=== PATIENT | female | born 1965 | race Caucasian/White ===

== ENCOUNTER 2017-01-05 01:13 | Inpatient (IN) | payer MEDICARE, OTHER ==
[~2017-01-05] VITALS: Ht 160 cm; Wt 77.7 kg
[~2017-01-05 01:13] MED LIST: LURA20TA PO
[2017-01-05 02:20] VITALS: BP 154/97; PULSE 82; RESP 17; TEMP 98.5; O2SAT 100
[2017-01-05] MEDS ORDERED: ACETAMINOPHEN 325 MG TAB PO PRN (02:45)
[2017-01-05] MEDS ORDERED: ALUMINUM/MAGNESIUM/SIMETH 30 ML CUP PO PRN (02:45)
[2017-01-05] MEDS ORDERED: MAGNESIUM HYDROXIDE SUSP 30 ML CUP PO PRN (02:45)
[2017-01-05] MEDS ORDERED: LORazepam 2 MG/ML VIAL IM PRN (02:45)
[2017-01-05] MEDS: LORazepam 1 MG TAB PO PRN ×2 (03:18→20:24)
[2017-01-05] MEDS: NICOTINE 21 MG/24 HR PATCH T-DERMAL SCH (08:12)
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
[2017-01-05] MEDS ORDERED: diphenhydrAMINE HCL 50 MG CAP PO PRN (10:45)
[2017-01-05] MEDS ORDERED: diphenhydrAMINE HCL 50 MG/ML VIAL IM PRN (10:45)
[2017-01-05] MEDS ORDERED: cloNIDine HCL 0.1 MG TAB PO PRN (11:00)
--- NOTE | 2017-01-05 11:16 | PD.CONS ---
[facility] Requested By DR NATALIYA WALL Reason for Consult MEDICAL MANAGEMENT Primary Care Physician Unknown Diagnoses: (1) Tobacco abuse (2) Hypertension (3) Homeless (4) Psychiatric diagnosis History of Present Illness PATIENT IS A 51 YEAR OLD FEMALE WITH HISTORY OF TOBACCO ABUSE, HYPERTENSION, PSYCHIATRIC DISORDERS, AND SUICIDAL IDEATION WHO PRESENTED TO [facility]. PATIENT WAS PLACED UNDER A [place] ACT AND TRANSFERRED HERE FOR PSYCHIATRIC EVALUATION WE HAVE BEEN CONSULTED FOR MEDICAL MANAGEMENT Review of Systems Constitutional: DENIES: Diaphoretic episodes, Fatigue, Fever, Weight gain, Weight loss, Chills, Dizziness, Change in appetite Endocrine: DENIES: Abnorml menstrual pattern, Heat/cold intolerance Eyes: DENIES: Blurred vision, Diplopia, Eye inflammation Ears, nose, mouth, throat: DENIES: Tinnitus, Hearing loss, Vertigo, Nasal discharge Respiratory: DENIES: Apneas, Cough, Snoring Cardiovascular: DENIES: Chest pain, Palpitations, Syncope, Dyspnea on Exertion Gastrointestinal: DENIES: Abdominal pain, Black stools, Bloody stools Genitourinary: DENIES: Abnormal vaginal bleeding, Dysmenorrhea, Dyspareunia Musculoskeletal: DENIES: Joint pain, Muscle aches, Stiffness, Joint Swelling Integumentary: DENIES: Abnormal pigmentation, Pruritus, Rash, Nail changes Hematologic/lymphatic: DENIES: Bruising, Lymphadenopathy Immunologic/allergic: DENIES: Eczema, Urticaria Neurologic: DENIES: Abnormal gait, Headache, Localized weakness Psychiatric: COMPLAINS OF: Anxiety, Mood changes, Depression, Hallucinations, Agitation, Suicidal Ideation Except as stated in HPI: all other systems reviewed are Neg Past Family Social History Allergies: Coded Allergies: No Known Allergies (Unverified Allergy, Unknown, 01/05/17) Past Medical History Hypertension Psychiatric problems Tobacco abuse Noncompliance Homeless Past Surgical History Cholecystectomy section Reported Medications Reported Meds & Active Scripts Active Reported Latuda (Lurasidone) 20 Mg Tab 20 Mg PO DAILY Active Ordered Medications Current Medications Lorazepam (Ativan) 1 mg Q6H PRN PO MODERATE TO SEVERE ANXIETY Last administered on 01/05/17t 03:18; Start 01/05/17 at 02:45 Lorazepam (Ativan Inj) 1 mg Q6H PRN IM MODERATE TO SEVERE ANXIETY; Start 01/05 at 02:45 Acetaminophen (Tylenol) 650 mg Q4H PRN PO Pain 1-5 or Temp >101F; Start at 02:45 Magnesium Hydroxide (Milk Of Magnesia Liq) 30 ml DAILY PRN PO CONSTIPATION; Start 01/05/17 at 02:45 Al Hydrox/Mg Hydrox/Simethicone (Mag-Al Plus Susp Liq) 30 ml Q6H PRN PO DYSPEPSIA; Start 01/05/17 at 02:45 Nicotine (Habitrol 21 Mg Patch.24 Hr) 1 patch DAILY T-DERMAL Last administered on 01/05/17t 08:12; Start 01/05/17 at 09:00 Miscellaneous Information 1 HS T-DERMAL ; Start 01/05/17 at 21:00 Ziprasidone (Geodon) 40 mg BIDPC PO ; Start 01/05/17 at 18:00; Status UNV Diphenhydramine HCl (Benadryl) 50 mg Q6H PRN PO EPS or INSOMNIA; Start at 10:45; Status UNV Diphenhydramine HCl (Benadryl Inj) 50 mg Q6H PRN IM EPS, unable to take PO.; Start 01/05/17 at 10:45; Status UNV Clonidine (Catapres) 0.1 mg Q4H PRN PO SBP>160, DBP>90; Start 01/05/17 at 11: 00; Status UNV Family History Possibly hypertension Social History Smokes cigars daily Denies any alcohol or illicit Physical Exam Vital Signs Vital Signs Date Time Temp Pulse Resp B/P (MAP) Pulse Ox O2 Delivery O2 Flow Rate FiO2 01/05/17 02:20 98.5 82 17 154/97 (116) 100 Physical Exam GENERAL: This is a well-nourished, well-developed patient, in no apparent distress. SKIN: No rashes, ecchymoses or lesions. Cool and dry. HEAD: Atraumatic. Normocephalic. No temporal or scalp tenderness. EYES: Pupils equal round and reactive. Extraocular motions intact. No scleral icterus. No injection or drainage. ENT: Nose without bleeding, purulent drainage or septal hematoma. Throat without erythema, tonsillar hypertrophy or exudate. Uvula midline. Airway patent. NECK: Trachea midline. No JVD or lymphadenopathy. Supple, nontender, no meningeal signs. CARDIOVASCULAR: Regular rate and rhythm without murmurs, gallops, or rubs. RESPIRATORY: Clear to auscultation. Breath sounds equal bilaterally. No wheezes , rales, or rhonchi. GASTROINTESTINAL: Abdomen soft, non-tender, nondistended. No hepato-splenomegaly , or palpable masses. No guarding. MUSCULOSKELETAL: Extremities without clubbing, cyanosis, or edema. No joint tenderness, effusion, or edema noted. No calf tenderness. Negative Homans sign bilaterally. NEUROLOGICAL: Awake and alert. Cranial nerves II through XII intact. Motor and sensory grossly within normal limits. Five out of 5 muscle strength in all muscle groups. Normal speech. Assessment and Plan Problem List: (1) Psychiatric diagnosis ICD Code: F99 - Mental disorder, not otherwise specified (2) Hypertension ICD Code: I10 - Essential (primary) hypertension (3) Tobacco abuse ICD Code: Z72.0 - Tobacco use (4) Homeless ICD Code: Z59.0 - Homelessness Assessment and Plan Possible hypertension will continue to monitor. We'll have Catapres available for elevated blood pressure. May need to be started on lisinopril since it is free at [facility] if blood pressure is an issue Tobacco abuse recommend smoking cessation and NicoDerm patch Case management with help with the homeless issue A.m. labs Will follow for any other issues Code Status Full code Discussed Condition With Patient's RN and the patient Wicho Whitman DO Jan 05, 2017 11:16
--- NOTE | 2017-01-05 17:14 | MG ---
cc: DAYNA WOO MD Lab No: Date: 01/05/2017 Age: Sex: F Race: ELECTROENCEPHALOGRAM RECORD NUMBER [id number] DATE OF 1965 HISTORY A 51-year-old with a history of hallucinations, depression, anxiety. DESCRIPTION Posterior rhythm demonstrating 8-10 Hz activity, 10-30 microvolts. Good anterior to posterior gradient. Beta frequency in the frontal channels. Slight increase in theta. Good EEG variability reactivity. Reasonable driving with photic stimulation. Single lead EKG showing sinus rhythm. INTERPRETATION Normal EEG. Clinical correlation. Dayna Woo MD MG/KK /4:16 PM /4:56 PM
[2017-01-05] MEDS ORDERED: ZIPRASIDONE HCL 40 MG CAP PO SCH (18:00)
--- NOTE | 2017-01-05 19:24 | MB ---
cc: DOMENIC FIELD M.D. DATE OF CONSULTATION 01/05/2017 DATE OF 1965, 51 years old REASON FOR CONSULTATION Olfactory hallucinations. HISTORY OF THE PRESENT ILLNESS This is a 51-year-old woman with a history of bipolar illness comes in from [facility], voluntarily presented initially to the ED there complaining of suicidal radiation, depression, anxiety, some possible auditory hallucinations, feeling threatened while she was on the street. I am asked to evaluate her for some olfactory hallucinations. She states that she was on a park bench or on a street bench and she states she started smelling what she describes as warfare, putrid smell. She had one today when they were doing the EEG, she states when they were having her hyperventilate. She also claims that she is congested. She denies any trouble with her taste. She can taste food. She states she can smell normally as well. Denies any weakness in arms or legs or balance issues. PAST MEDICAL HISTORY Is of: 1. Hypertension. 2. Some shoulder pain. 3. Heart murmur. ALLERGIES None verified. MEDICATIONS Her other medicines, she was on Latuda in the past. SOCIAL HISTORY She is homeless. She states she is college educated, has a degree in family and child Development. She is applying for disability. from her . They have two sons age 16 and 21. Says she is on probation for trespassing. PHYSICAL EXAMINATION VITAL SIGNS: On exam her vitals, her temperature is 98.5, heart rate 82, respiratory rate 17, blood pressure 154/97, sating 100% room air. NEUROLOGIC: She is awake and alert. His speech is normal. Pupils reactive. Face is symmetrical. Tongue is midline. Motor zuñiga she does not exhibit any weakness. No drift or leg lag. She has been ambulating around the unit here normally. She has not had any issues reported. LABORATORY DATA Is pending but her beta hCG less than 1. MEDICATIONS Her current medications now are: 1. Prolixin 5 mg q. 12. 2. Clonidine p.r.n. 3. Benadryl p.r.n. 4. Ativan p.r.n. IMPRESSION Olfactory hallucinations certainly would be concerning for possible epileptic activity or epilepsy. Certainly a mass lesion needs to be differentiated. She already had an EEG, the report is pending. I will go ahead and I did discuss this with her I would like to do an MRI of the brain if her workup is negative at that point in time. Continue treating her for her psychiatric illness and may very well have a component of some sinus issues. Her TSH, free T4, metabolic panel, CBC, hemoglobin A1c is pending as well. Continue current care. As stated if EEG and MRI are unremarkable, no further neurological testing is needed. MD ROSLYN Mckinley/TRA /5:07 PM /6:50 PM
[2017-01-05] MEDS: REMOVE OLD NICOTINE PATCH T-DERMAL SCH (20:27)
[2017-01-06 05:37] VITALS: BP 118/69; PULSE 101; RESP 16; TEMP 98.2; O2SAT 99
[2017-01-06 05:45] VITALS: PULSE 74; RESP 16; TEMP 98; O2SAT 98
[2017-01-06] MEDS: NICOTINE 21 MG/24 HR PATCH T-DERMAL SCH (09:00)
[2017-01-06] MEDS: REMOVE OLD NICOTINE PATCH T-DERMAL SCH (09:11)
[2017-01-06 11:10] LABS: AUTOMATED NEUTROPHIL # 5.2 TH/MM3 (1.8-7.7); BASOPHIL # 0.1 TH/MM3 (0-0.2); BASOPHIL % 0.9 % (0.0-2.0); EOSINOPHIL # 0.4 TH/MM3 (0-0.4); EOSINOPHIL % 4.7 % (0.0-4.0); HEMO FLAGS DIFF FINAL; LYMPH % 21.6 % (9.0-44.0); LYMPHOCYTE # 1.7 TH/MM3 (1.0-4.8); MEAN CELL VOLUME 79.2 FL (80.0-100.0); MEAN CORPUSCULAR HEMOGLOBIN 26.7 PG (27.0-34.0); MEAN CORPUSCULAR HGB CONC 33.7 % (32.0-36.0); MONO % 8.3 % (0.0-8.0); NEUT % 64.5 % (16.0-70.0); PLATELET COUNT 254 TH/MM3 (150-450); RED BLOOD COUNT 4.79 MIL/MM3 (4.00-5.30); RED CELL DISTRIBUTION WIDTH 17.8 % (11.6-17.2); WHITE BLOOD COUNT 8.1 TH/MM3 (4.0-11.0)
[2017-01-06 11:19] LABS: ALT (GPT) 20 U/L (10-53); ANION GAP 7 MEQ/L (5-15); AST (GOT) 9 U/L (15-37); BICARBONATE 24.9 MEQ/L (21.0-32.0); BLOOD UREA NITROGEN 11 MG/DL (7-18); CHLORIDE 106 MEQ/L (98-107); GLOMERULAR FILTRATION RATE 100 ML/MIN (>89); MAGNESIUM 1.7 MG/DL (1.5-2.5); POTASSIUM 4.5 MEQ/L (3.5-5.1); SODIUM (NA) 138 MEQ/L (136-145)
[2017-01-06 11:27] LABS: ALKALINE PHOSPHATASE 64 U/L (45-117); FREE T4 0.98 NG/DL (0.76-1.46); LDL CHOLESTEROL 109 MG/DL (0-99); TOTAL BILIRUBIN ADULT 0.3 MG/DL (0.2-1.0)
--- NOTE | 2017-01-06 11:34 | HHI.PR ---
Subjective Remarks PATIENT IS A 51 YEAR OLD FEMALE WITH HISTORY OF TOBACCO ABUSE, HYPERTENSION, PSYCHIATRIC DISORDERS, AND SUICIDAL IDEATION WHO PRESENTED TO [facility]. PATIENT WAS PLACED UNDER A TEIXEIRA ACT AND TRANSFERRED HERE FOR PSYCHIATRIC EVALUATION WE HAVE BEEN CONSULTED FOR MEDICAL MANAGEMENT 01-06 EEG IS NEGATIVE TO HAVE MRI OF HEAD NO NEW COMPLAINTS DW RN AND PATIENT Objective Vitals Vital Signs Date Time Temp Pulse Resp B/P (MAP) Pulse Ox O2 Delivery O2 Flow Rate FiO2 01/06/17 05:45 98.0 74 16 98 01/06/17 05:37 98.2 101 16 118/69 (85) 99 Result Diagram: 01/06/17 1027 01/06/17 1027 Other Results Laboratory Tests Test 01/05/17 12:35 01/06/17 10:27 Beta HCG, Qualitative LESS THAN 1 MIU/ML White Blood Count 8.1 TH/MM3 Red Blood Count 4.79 MIL/MM3 Hemoglobin 12.8 GM/DL Hematocrit 38.0 % Mean Corpuscular Volume 79.2 FL Mean Corpuscular Hemoglobin 26.7 PG Mean Corpuscular Hemoglobin Concent 33.7 % Red Cell Distribution Width 17.8 % Platelet Count 254 TH/MM3 Mean Platelet Volume 9.8 FL Neutrophils (%) (Auto) 64.5 % Lymphocytes (%) (Auto) 21.6 % Monocytes (%) (Auto) 8.3 % Eosinophils (%) (Auto) 4.7 % Basophils (%) (Auto) 0.9 % Neutrophils # (Auto) 5.2 TH/MM3 Lymphocytes # (Auto) 1.7 TH/MM3 Monocytes # (Auto) 0.7 TH/MM3 Eosinophils # (Auto) 0.4 TH/MM3 Basophils # (Auto) 0.1 TH/MM3 CBC Comment DIFF FINAL Differential Comment Blood Urea Nitrogen 11 MG/DL Creatinine 0.63 MG/DL Random Glucose 103 MG/DL Total Protein 6.3 GM/DL Albumin 2.9 GM/DL Calcium Level 8.9 MG/DL Phosphorus Level 3.6 MG/DL Magnesium Level 1.7 MG/DL Alkaline Phosphatase 64 U/L Aspartate Amino Transf (AST/SGOT) 9 U/L Alanine Aminotransferase (ALT/SGPT) 20 U/L Total Bilirubin 0.3 MG/DL Sodium Level 138 MEQ/L Potassium Level 4.5 MEQ/L Chloride Level 106 MEQ/L Carbon Dioxide Level 24.9 MEQ/L Anion Gap 7 MEQ/L Estimat Glomerular Filtration Rate 100 ML/MIN Triglycerides Level 269 MG/DL Cholesterol Level 202 MG/DL LDL Cholesterol 109 MG/DL HDL Cholesterol 39.0 MG/DL Cholesterol/HDL Ratio 5.17 RATIO Free Thyroxine 0.98 NG/DL Thyroid Stimulating Hormone 3rd Gen 1.360 uIU/ML Objective Remarks GENERAL: AWAKE ALERT ORIENTED X3 TALKATIVE AND COOPERATIVE SKIN: Warm and dry. HEAD: Atraumatic. Normocephalic. EYES: Pupils equal and round. No scleral icterus. No injection or drainage. EOMI ENT: No nasal bleeding or discharge. Mucous membranes pink and moist. TONGUE MIDLINE NECK: Trachea midline. No JVD. SUPPLE CARDIOVASCULAR: Regular rate and rhythm. RESPIRATORY: COARSE BREATH SOUNDS BL. Breath sounds equal bilaterally. GASTROINTESTINAL: Abdomen soft, non-tender, nondistended. Hepatic and splenic margins not palpable. MUSCULOSKELETAL: Extremities without clubbing, cyanosis, or edema. No obvious deformities. NEUROLOGICAL: Awake and alert. No obvious cranial nerve deficits. Motor grossly within normal limits. Five out of 5 muscle strength in the arms and legs. Normal speech. PSYCHIATRIC: INAppropriate mood and affect; insight and judgment ABnormal. Procedures EEG Medications and IVs Current Medications Lorazepam (Ativan) 1 mg Q6H PRN PO MODERATE TO SEVERE ANXIETY Last administered on 01/05/17 20:24; Start 01/05/17 at 02:45 Lorazepam (Ativan Inj) 1 mg Q6H PRN IM MODERATE TO SEVERE ANXIETY; Start 01/05 at 02:45 Acetaminophen (Tylenol) 650 mg Q4H PRN PO Pain 1-5 or Temp >101F; Start at 02:45 Magnesium Hydroxide (Milk Of Magnesia Liq) 30 ml DAILY PRN PO CONSTIPATION; Start 01/05/17 at 02:45 Al Hydrox/Mg Hydrox/Simethicone (Mag-Al Plus Susp Liq) 30 ml Q6H PRN PO DYSPEPSIA; Start 01/05/17 at 02:45 Nicotine (Habitrol 21 Mg Patch.24 Hr) 1 patch DAILY T-DERMAL Last administered on 01/05/17 08:12; Start 01/05/17 at 09:00 Miscellaneous Information 1 HS T-DERMAL ; Start 01/05/17 at 21:00 Ziprasidone (Geodon) 40 mg BIDPC PO ; Start 01/05/17 at 18:00; Stop 01/05/17 at 18:00; Status DC Diphenhydramine HCl (Benadryl) 50 mg Q6H PRN PO EPS or INSOMNIA; Start at 10:45 Diphenhydramine HCl (Benadryl Inj) 50 mg Q6H PRN IM EPS, unable to take PO.; Start 01/05/17 at 10:45 Clonidine (Catapres) 0.1 mg Q4H PRN PO SBP>160, DBP>90; Start 01/05/17 at 11: 00 Fluphenazine HCl (Prolixin) 5 mg Q12HR PO Last administered on 01/06/17t 09:00 ; Start 01/05/17 at 21:00 A/P Problem List: (1) Psychiatric diagnosis ICD Code: F99 - Mental disorder, not otherwise specified (2) Hypertension ICD Code: I10 - Essential (primary) hypertension (3) Tobacco abuse ICD Code: Z72.0 - Tobacco use (4) Homeless ICD Code: Z59.0 - Homelessness Assessment and Plan Possible hypertension will continue to monitor. We'll have Catapres available for elevated blood pressure. May need to be started on lisinopril since it is free at [facility] if blood pressure is an issue Tobacco abuse recommend smoking cessation and NicoDerm patch Case management with help with the homeless issue SEEN BY NEUROLOGY HAD EEG- NEGATIVE TO HAVE MRIS OF BRAIN DW RN AND PATIENT Wicho Whitman Jan 06, 2017 11:34
--- NOTE | 2017-01-06 12:18 | HHI.PYPN ---
Subjective Chief Complaint: Psychosis Remarks Patient seen and examined with nurse. Chart reviewed. Case discussed with nursing staff. No behavioral issues noted. On my examination today, the patient reports decrease of her auditory hallucinations. She denies any suicidal or homicidal ideation. She is somewhat more focused in conversation and does not bring up any bizarre ideation today. Denies side effects from the Prolixin. We discussed that this is available as a long-acting injectable if desired. Denies physical complaints except she does note that she had an episode of incontinence of urine yesterday evening. No reported ictal activity associated with this. Review of Systems ROS Limitations: Psychotic Except as stated in HPI: all other systems reviewed are Neg Mental Status Examination Appearance: Appropriate Consciousness: Alert Orientation: x4 Motor Activity: Normal gait Speech: Unremarkable Language: Adequate Fund of Knowledge: Adequate Attention and Concentration: Adequate Memory: Unremarkable Mood: Appropriate Affect: Appropriate Thought Process & Associations: Logical, Linear Thought Content: Appropriate Hallucination Type: Auditory (lessening) Delusion Type: None Suicidal Ideation: No Suicidal Plan: No Suicidal Intention: No Homicidal Ideation: No Homicidal Plan: No Homicidal Intention: No Insight: Fair Judgment: Adequate (fair) Results Labs Test 01/05/17 12:35 01/06/17 10:27 Beta HCG, Qualitative LESS THAN 1 MIU/ML White Blood Count 8.1 TH/MM3 Red Blood Count 4.79 MIL/MM3 Hemoglobin 12.8 GM/DL Hematocrit 38.0 % Mean Corpuscular Volume 79.2 FL Mean Corpuscular Hemoglobin 26.7 PG Mean Corpuscular Hemoglobin Concent 33.7 % Red Cell Distribution Width 17.8 % Platelet Count 254 TH/MM3 Mean Platelet Volume 9.8 FL Neutrophils (%) (Auto) 64.5 % Lymphocytes (%) (Auto) 21.6 % Monocytes (%) (Auto) 8.3 % Eosinophils (%) (Auto) 4.7 % Basophils (%) (Auto) 0.9 % Neutrophils # (Auto) 5.2 TH/MM3 Lymphocytes # (Auto) 1.7 TH/MM3 Monocytes # (Auto) 0.7 TH/MM3 Eosinophils # (Auto) 0.4 TH/MM3 Basophils # (Auto) 0.1 TH/MM3 CBC Comment DIFF FINAL Differential Comment Blood Urea Nitrogen 11 MG/DL Creatinine 0.63 MG/DL Random Glucose 103 MG/DL Total Protein 6.3 GM/DL Albumin 2.9 GM/DL Calcium Level 8.9 MG/DL Phosphorus Level 3.6 MG/DL Magnesium Level 1.7 MG/DL Alkaline Phosphatase 64 U/L Aspartate Amino Transf (AST/SGOT) 9 U/L Alanine Aminotransferase (ALT/SGPT) 20 U/L Total Bilirubin 0.3 MG/DL Sodium Level 138 MEQ/L Potassium Level 4.5 MEQ/L Chloride Level 106 MEQ/L Carbon Dioxide Level 24.9 MEQ/L Anion Gap 7 MEQ/L Estimat Glomerular Filtration Rate 100 ML/MIN Triglycerides Level 269 MG/DL Cholesterol Level 202 MG/DL LDL Cholesterol 109 MG/DL HDL Cholesterol 39.0 MG/DL Cholesterol/HDL Ratio 5.17 RATIO Free Thyroxine 0.98 NG/DL Thyroid Stimulating Hormone 3rd Gen 1.360 uIU/ML Labs reviewed. TSH within normal limits. CBC unremarkable. CMP fairly unremarkable besides low-protein and low albumin. Lipid panel reviewed. EKG read as sinus rhythm with a QTcH 433 ms. EEG read as normal. Vitals/IOs Vital Signs Date Time Temp Pulse Resp B/P (MAP) Pulse Ox O2 Delivery O2 Flow Rate FiO2 01/06/17 05:45 98.0 74 16 98 Assessment & Plan Problem List: (1) Chronic schizoaffective disorder with acute exacerbation ICD Codes: F25.8 - Other schizoaffective disorders Assessment & Plan Continue Prolixin 5 mg twice daily as ordered. Check a urinalysis. Follow-up MRI of the brain. Neurology and hospitalist input noted and appreciated. Continue to monitor on the inpatient unit; transfer to lower acuity unit when a bed is available. Continue other medications and care as ordered. Justification for Cont. Inpt. High risk for decompensation in less restrictive environment. Discharge Planning Pending psychiatric stabilization. Request HC Surrog/Guard Advoc?: No Kwan Harrell MD Jan 06, 2017 12:18
[2017-01-06] MEDS ORDERED: NICOTINE 21 MG/24 HR PATCH T-DERMAL PRN (15:30)
--- NOTE | 2017-01-06 15:42 | EKG ---
Date Performed: 01/05/2017 Time Performed: 12:44:15 PTAGE: 51 years EKG: Sinus rhythm NONSPECIFIC T-WAVE ABNORMALITY BORDERLINE ECG NO PREVIOUS TRACING DOCTOR: Patrice Ayala Interpretating Date/Time 01/06/2017 15:41:45
[2017-01-06 18:00] LABS: BACTERIA, URINE RARE /hpf; BLOOD, URINE NEG (NEG); COMMENT (UR) CULT NOT INDICATED; CULTURE IF INDICATED CULT NOT INDICATED; GLUCOSE,URINE NEG (NEG); KETONE, URINE NEG (NEG); MUCUS URINE FEW /lpf (OCC); NITRITE,URINE NEG (NEG); PH, URINE 5.5 (5.0-8.5); SQUAMOUS EPITHELIAL CELL URINE 1 /hpf (0-5); URINE COLOR LIGHT-YELLOW (YELLW/STRAW)
[2017-01-06 18:14] LABS: HEMOGLOBIN A1a 1.1 %; HEMOGLOBIN A1b 1.6 %; HEMOGLOBIN Ao 85.8 %; HEMOGLOBIN P3 3.6 %
[2017-01-06] MEDS ORDERED: GADODIAMIDE PF 287 MG/ML 5 ML VIAL (for RAD MRI) IVCONTRAST ONE (19:41)
--- NOTE | 2017-01-06 21:12 | RADRPT ---
EXAM DATE/TIME: 01/06/2017 19:28 [place] COMPARISON: No previous studies available for comparison. INDICATIONS : Mass. Olfactory hallucinations. CONTRAST: 15 cc Omniscan (gadodiamide) IV MEDICAL HISTORY : Hypertension. SURGICAL HISTORY : Cholecystectomy. section. ENCOUNTER: Initial ACUITY: 1 day PAIN SCORE: 0/10 LOCATION: Head. TECHNIQUE: Multiplanar, multisequence MRI of the brain was performed both prior to and following the administrat ion of paramagnetic contrast. FINDINGS: CEREBRUM: The ventricles are normal for age. No evidence of midline shift, mass lesion, hemorrhage or acute in farction. No extraaxial fluid collections are seen. The pituitary gland and suprasellar cistern are normal in configuration. WHITE MATTER: No significant signal abnormalities are seen in the white matter. POSTERIOR FOSSA: The cerebellum and brainstem are intact. The 4th ventricle is midline. The cerebellopontine angle is unremarkable. The cerebellar tonsils are normal in position. DIFFUSION IMAGING: No focal areas of restricted diffusion are seen. No evidence of acute infarction. EXTRACRANIAL: The visualized portions of the orbits are unremarkable. There is minimal posterior right ethmoid sinu s disease. There is minimal mucosal thickening at the maxillary sinuses. POST-CONTRAST: No abnormal areas of parenchymal or dural enhancement. No evidence of blood-brain barrier breakdown. CONCLUSION: 1. No intracranial abnormality is seen. 2. Minimal sinus disease. Jacob Dyer MD on January 06, 2017 at 21:07 Board Certified Radiologist. This report was verified electronically.
[2017-01-06] MEDS: LORazepam 1 MG TAB PO PRN (21:35)
[2017-01-07 05:51] VITALS: BP 125/70; PULSE 66; RESP 17; TEMP 97.7; O2SAT 98
--- NOTE | 2017-01-07 08:35 | HHI.PYPN ---
Subjective Chief Complaint: Psychosis Remarks Patient seen and examined with nurse. Chart reviewed. Case discussed in treatment team. Nursing staff relates that the patient refused the Prolixin overnight. On my examination today, the patient tells me that she didn't like how the Prolixin made her feel. She does not wish to continue with this medication. We discussed pharmacotherapeutic options moving forward and settle on returning to her original Latuda. She denies SI or HI. Denies AVH. No physical complaints presently. Review of Systems Except as stated in HPI: all other systems reviewed are Neg Mental Status Examination Appearance: Appropriate Consciousness: Alert Orientation: x4 Motor Activity: Other (no motor abnormalities noted) Speech: Unremarkable Language: Adequate Fund of Knowledge: Adequate Attention and Concentration: Adequate Memory: Unremarkable Mood: Appropriate Affect: Appropriate Thought Process & Associations: Logical, Goal directed, Linear Thought Content: Appropriate Hallucination Type: None Delusion Type: None Suicidal Ideation: No Suicidal Plan: No Suicidal Intention: No Homicidal Ideation: No Homicidal Plan: No Homicidal Intention: No Insight: Fair Judgment: Adequate (fair) Results Labs Test 01/06/17 10:27 01/06/17 17:45 White Blood Count 8.1 TH/MM3 Red Blood Count 4.79 MIL/MM3 Hemoglobin 12.8 GM/DL Hematocrit 38.0 % Mean Corpuscular Volume 79.2 FL Mean Corpuscular Hemoglobin 26.7 PG Mean Corpuscular Hemoglobin Concent 33.7 % Red Cell Distribution Width 17.8 % Platelet Count 254 TH/MM3 Mean Platelet Volume 9.8 FL Neutrophils (%) (Auto) 64.5 % Lymphocytes (%) (Auto) 21.6 % Monocytes (%) (Auto) 8.3 % Eosinophils (%) (Auto) 4.7 % Basophils (%) (Auto) 0.9 % Neutrophils # (Auto) 5.2 TH/MM3 Lymphocytes # (Auto) 1.7 TH/MM3 Monocytes # (Auto) 0.7 TH/MM3 Eosinophils # (Auto) 0.4 TH/MM3 Basophils # (Auto) 0.1 TH/MM3 CBC Comment DIFF FINAL Differential Comment Blood Urea Nitrogen 11 MG/DL Creatinine 0.63 MG/DL Random Glucose 103 MG/DL Total Protein 6.3 GM/DL Albumin 2.9 GM/DL Calcium Level 8.9 MG/DL Phosphorus Level 3.6 MG/DL Magnesium Level 1.7 MG/DL Alkaline Phosphatase 64 U/L Aspartate Amino Transf (AST/SGOT) 9 U/L Alanine Aminotransferase (ALT/SGPT) 20 U/L Total Bilirubin 0.3 MG/DL Sodium Level 138 MEQ/L Potassium Level 4.5 MEQ/L Chloride Level 106 MEQ/L Carbon Dioxide Level 24.9 MEQ/L Anion Gap 7 MEQ/L Estimat Glomerular Filtration Rate 100 ML/MIN Hemoglobin A1c 5.3 % Triglycerides Level 269 MG/DL Cholesterol Level 202 MG/DL LDL Cholesterol 109 MG/DL HDL Cholesterol 39.0 MG/DL Cholesterol/HDL Ratio 5.17 RATIO Free Thyroxine 0.98 NG/DL Thyroid Stimulating Hormone 3rd Gen 1.360 uIU/ML Urine Color LIGHT-YELLOW Urine Turbidity CLEAR Urine pH 5.5 Urine Specific [place] 1.002 Urine Protein NEG mg/dL Urine Glucose (UA) NEG mg/dL Urine Ketones NEG mg/dL Urine Occult Blood NEG Urine Nitrite NEG Urine Bilirubin NEG Urine Urobilinogen LESS THAN 2.0 MG/DL Urine Leukocyte Esterase NEG Urine RBC 1 /hpf Urine WBC 1 /hpf Urine Squamous Epithelial Cells 1 /hpf Urine Bacteria RARE /hpf Urine Mucus FEW /lpf Microscopic Urinalysis Comment CULT NOT INDICATED Labs reviewed. Last Impressions Brain MRI 01/06/17 0000 Signed Impressions: Service Date/Time: December 19:28 - CONCLUSION: 1. No intracranial abnormality is seen. 2. Minimal sinus disease. Jacob Dyer MD Imaging results reviewed. Vitals/IOs Vital Signs Date Time Temp Pulse Resp B/P (MAP) Pulse Ox O2 Delivery O2 Flow Rate FiO2 01/07/17 05:51 97.7 66 17 125/70 (88) 98 Assessment & Plan Problem List: (1) Chronic schizoaffective disorder with acute exacerbation ICD Codes: F25.8 - Other schizoaffective disorders Assessment & Plan Discontinue Prolixin and resume Latuda at a dose of 40 mg with dinner with plans to titrate over the weekend to previous reported dose of 60 mg with dinner. Continue to monitor on the inpatient unit. Continue other medications and care as ordered. Justification for Cont. Inpt. Med changes. Risk for decompensation pending med changes. Discharge Planning Anticipate discharge beginning of next week. Case discussed with counselor. Request HC Surrog/Guard Advoc?: No Kwan Harrell MD Jan 07, 2017 08:35
--- NOTE | 2017-01-07 09:28 | PD.TTN ---
Patient Problems 1. Discharge planning 2. Medication compliance 3. Knowledge deficit 4. Lack of coping skills Progress Toward Goals Provider Present: Dr. Florecita Harrell Provider Input: Dr. Harrell's met to discuss patient's treatment plan, discharge and medication. Patient was transferred from another hospital. Patient was offer her medication, will start treatment. Neurologist consulted. Patient is homeless Nurse(s) Input: Patient's nurse reports patient is seclusive, depressed, medication compliant, denies suicidal and homicidal ideation. Psychiatric Counselors Present: BALTAZAR Davalos Psych Therapist Input: Patient seen in her room. Patient presents pleasant, cooperative, affect appropriate. Patient denies suicidal and homicidal ideation. Patient did not present internally stimulated or with any delusional content. Patient was given [facility] number to call to speak to [place]. Facility does have a female bed available. Group Spec/RT/OT/GIFFORD Present: ИРИНА Lan Group Spec/RT/OT/GIFFORD Input: Patient attends no groups Stacey Goodwin Jan 07, 2017 09:27
[2017-01-07 16:57] VITALS: BP 136/80; PULSE 80; RESP 17; TEMP 97.5; O2SAT 99
[2017-01-07] MEDS: LURASIDONE 40 MG TAB PO SCH (17:24)
[2017-01-07] MEDS ORDERED: LURASIDONE 40 MG TAB PO SCH (18:00)
[2017-01-07] MEDS: REMOVE OLD NICOTINE PATCH T-DERMAL SCH (21:00)
[2017-01-08 06:04] VITALS: BP 143/93; PULSE 81; RESP 17; TEMP 98.7; O2SAT 100
--- NOTE | 2017-01-08 16:17 | HHI.PYPN ---
Subjective Chief Complaint: Psychosis Remarks Pt seen and discussed with staff. She denies AVH or olfactory hallucinations today. No bizarre behavior or agitation. Mood euthymic. She is compliant with medications. No SI/HI. Mental Status Examination Appearance: Appropriate Consciousness: Alert Orientation: x4 Motor Activity: Other (no motor abnormalities noted) Speech: Unremarkable Language: Adequate Fund of Knowledge: Adequate Attention and Concentration: Adequate Memory: Unremarkable Mood: Appropriate Affect: Appropriate Thought Process & Associations: Logical, Goal directed, Linear Thought Content: Appropriate Hallucination Type: None Delusion Type: None Suicidal Ideation: No Suicidal Plan: No Suicidal Intention: No Homicidal Ideation: No Homicidal Plan: No Homicidal Intention: No Insight: Fair Judgment: Adequate (fair) Results Vitals/IOs Vital Signs Date Time Temp Pulse Resp B/P (MAP) Pulse Ox O2 Delivery O2 Flow Rate FiO2 01/08/17 06:04 98.7 81 17 143/93 (110) 100 Assessment & Plan Problem List: (1) Chronic schizoaffective disorder with acute exacerbation ICD Codes: F25.8 - Other schizoaffective disorders Assessment & Plan Pt improving. Continue current tx plan. Estimated LOS: days Justification for Cont. Inpt. risk of decompensation Request HC Surrog/Guard Advoc?: No January Butts MD Jan 08, 2017 16:17
[2017-01-08] MEDS: LURASIDONE 40 MG TAB PO SCH (17:25)
[2017-01-08 18:00] VITALS: BP 191/82; PULSE 69; RESP 18; TEMP 98.7; O2SAT 99
[2017-01-08] MEDS: REMOVE OLD NICOTINE PATCH T-DERMAL SCH (21:00)
[2017-01-09 06:00] VITALS: BP 131/67; PULSE 64; RESP 17; TEMP 98.5; O2SAT 100
[2017-01-09] MEDS ORDERED: CLON.1 PO (08:59)
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
[2017-01-09 18:00] VITALS: BP 124/77; PULSE 68; RESP 16; TEMP 97.6; O2SAT 100
[2017-01-09] MEDS: LURASIDONE 40 MG TAB PO SCH (18:00)
[2017-01-09] MEDS: REMOVE OLD NICOTINE PATCH T-DERMAL SCH (21:00)
[2017-01-10 06:16] VITALS: BP 152/83; PULSE 68; RESP 16; TEMP 98.2; O2SAT 99
[2017-01-10] MEDS ORDERED: LURA1TAB2 PO (11:28)
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
--- NOTE | 2017-01-10 11:42 | HHI.PYPN ---
Subjective Chief Complaint: Psychosis Remarks Patient seen and examined with nurse. Chart reviewed. Case discussed with nursing staff. No behavioral issues overnight. Case discussed with counselor who reports that the patient has been accepted to [facility] facility tomorrow, Tuesday. On my examination today, the patient is in good spirits. She denies any suicidal or homicidal ideation. Contracts for safety. She denies any audiovisual hallucinations. I can elicit no delusional material. Denies side effects from medications. Feels that Latuda is working well for her. No physical complaints. Review of Systems Except as stated in HPI: all other systems reviewed are Neg Mental Status Examination Appearance: Appropriate Consciousness: Alert Orientation: x4 Motor Activity: Other (no hand tremor, no cogwheeling, no other motor abnormalities noted.) Speech: Unremarkable Language: Adequate Fund of Knowledge: Adequate Attention and Concentration: Adequate Memory: Unremarkable Mood: Appropriate Affect: Appropriate, Euthymic Thought Process & Associations: Logical, Goal directed, Linear Thought Content: Appropriate Hallucination Type: None Delusion Type: None Suicidal Ideation: No Suicidal Plan: No Suicidal Intention: No Homicidal Ideation: No Homicidal Plan: No Homicidal Intention: No Insight: Fair Judgment: Adequate (fair) Results Labs Labs reviewed. No new labs. Vitals/IOs Vital Signs Date Time Temp Pulse Resp B/P (MAP) Pulse Ox O2 Delivery O2 Flow Rate FiO2 01/10/17 06:16 98.2 68 16 152/83 (106) 99 Assessment & Plan Problem List: (1) Chronic schizoaffective disorder with acute exacerbation ICD Codes: F25.8 - Other schizoaffective disorders Assessment & Plan Continue Latuda as ordered. Continue to monitor on the inpatient unit. Continue other medications and care as ordered. Justification for Cont. Inpt. Risk for decompensation in less restrictive environment Discharge Planning Anticipate discharge tomorrow, Tuesday to [facility]. Request HC Surrog/Guard Advoc?: No Kwan Harrell MD Jan 10, 2017 11:42
[2017-01-10] MEDS: LURASIDONE 40 MG TAB PO SCH (17:05)
[2017-01-10 18:00] VITALS: BP 119/69; PULSE 62; RESP 16; TEMP 98.3; O2SAT 100
[2017-01-10] MEDS: REMOVE OLD NICOTINE PATCH T-DERMAL SCH (21:00)
[2017-01-11 06:26] VITALS: BP 128/53; PULSE 68; RESP 17; TEMP 98.1; O2SAT 98
--- NOTE | 2017-01-11 10:24 | PD.TTN ---
Patient Problems 1. Discharge planning 2. Medication compliance 3. Knowledge deficit 4. Lack of coping skills Progress Toward Goals Provider Present: Dr. Florecita Harrell Provider Input: Dr. Harrell's met to discuss patient's treatment plan, discharge and medication. Patient was transferred from another hospital. Patient was offer her medication, will start treatment. Neurologist consulted. Patient is homeless 01/11/17 Patient will be discharged today and will be residing at [facility] with appropriate follow up care at [facility]. Nurse(s) Input: Patient's nurse reports patient is seclusive, depressed, medication compliant, denies suicidal and homicidal ideation. 01/11/17 [place] has had no behavioral issues on the unit. Patient has been compliant with medications and currently denies suicidal and homicidial ideations. Psychiatric Counselors Present: BALTAZAR Davalos Talia Moussly, [facility] Psych Therapist Input: Patient seen in her room. Patient presents pleasant, cooperative, affect appropriate. Patient denies suicidal and homicidal ideation. Patient did not present internally stimulated or with any delusional content. Patient was given [facility] number to call to speak to [place]. Facility does have a female bed available. 01/11/17 Patient will be discharge and be transferred by hospital transport to [facility] where patient will be residing and having appropriate follow up care. Group Spec/RT/OT/GIFFORD Present: ИРИНА Lan Group Spec/RT/OT/GIFFORD Input: Patient attends no Valentina Dawson Jan 11, 2017 10:24
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
== END 2017-01-11 12:45 | disposition home or self-care (01) | DRG 885 ==
LOC: H270 02:20 → H260 01-06 17:32
PROVIDERS: ADMIT Psychiatry & Neurology Psychiatry; ATTEND Psychiatry & Neurology Psychiatry
DX: F25.8 Other schizoaffective disorders (principal); R45.851 Suicidal ideations; Z91.19 Patient's noncompliance with other medical treatment and regimen; I10 Essential (primary) hypertension; Z59.0 Homelessness; F31.9 Bipolar disorder, unspecified; F41.9 Anxiety disorder, unspecified; M25.511 Pain in right shoulder; Z91.5 Personal history of self-harm; Z65.3 Problems related to other legal circumstances; F17.290 Nicotine dependence, other tobacco product, uncomplicated; R32 Unspecified urinary incontinence
CPT/HCPCS: 70553; 80053; 80061; 81001; 83036; 83735; 84100; 84439; 84443; 84703; 85025; 93005; 95819; A9579; Q0163

== ENCOUNTER 2017-07-29 04:15 | Inpatient (IN) | payer MEDICARE ==
[~2017-07-29] VITALS: Ht 160 cm; Wt 78.8 kg
[2017-07-29 05:43] VITALS: RESP 18; TEMP 98.3; O2SAT 97
[2017-07-29] MEDS ORDERED: LORazepam 1 MG TAB PO PRN ×2 (06:00→16:30)
[2017-07-29] MEDS ORDERED: ALUMINUM/MAGNESIUM/SIMETH 30 ML CUP PO PRN (06:00)
[2017-07-29] MEDS ORDERED: ACETAMINOPHEN 325 MG TAB PO PRN (06:00)
[2017-07-29] MEDS ORDERED: LORazepam 2 MG/ML VIAL IM PRN (06:00)
[2017-07-29] MEDS ORDERED: diphenhydrAMINE HCL 50 MG CAP - HS PRN PO (06:00)
[2017-07-29] MEDS ORDERED: diphenhydrAMINE HCL 50 MG/ML VIAL - HS PRN IM (06:00)
[2017-07-29] MEDS ORDERED: MAGNESIUM HYDROXIDE SUSP 30 ML CUP PO PRN (06:00)
[2017-07-29] MEDS: NICOTINE 21 MG/24 HR PATCH T-DERMAL SCH (09:00)
[2017-07-29] MEDS: REMOVE OLD NICOTINE PATCH T-DERMAL SCH (12:54)
[2017-07-29] MEDS ORDERED: LORazepam 2 MG TAB PO PRN (16:30)
[2017-07-29] MEDS ORDERED: FLUMAZENIL 0.5 MG/5 ML VIAL IV PUSH PRN (16:30)
[2017-07-29] MEDS ORDERED: LORazepam 2 MG/ML VIAL IV PUSH PRN ×4 (16:30)
[2017-07-29] MEDS: LURASIDONE 40 MG TAB PO SCH ×2 (17:31→17:57)
[2017-07-29 18:28] VITALS: BP 160/88; PULSE 82; RESP 18; TEMP 98.4; O2SAT 100
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
[2017-07-30] MEDS: NICOTINE 21 MG/24 HR PATCH T-DERMAL SCH (08:39)
--- NOTE | 2017-07-30 17:13 | HHI.PYPN ---
Subjective Remarks Reviewed electronic medical record and discussed case with staff. Follow-up was conducted in the hallway. Blind and irritable. She states that she feels "pretty good". When asked how she slept she says okay but goes on to relate a "weird dream" at which point she began laughing inappropriately. She reports that her appetite is been good. Did consent to start her on Seroquel, as she was asking about the vergara difference and reported that the Latuda was too expensive for her. I did note some manipulative behaviors and believe there may be some cluster B characteristics present. Mental Status Examination Appearance: Disheveled Consciousness: Alert Orientation: Person, Place Speech: Unremarkable Language: Adequate Fund of Knowledge: Inadequate Attention and Concentration: Adequate Memory: Unremarkable Mood: Irritable Affect: Irritable Thought Process & Associations: Other ([place], noted to be responding to internal stimuli) Thought Content: Hallucinations Hallucination Type: Auditory Delusion Type: None Suicidal Ideation: Yes Suicidal Plan: No Suicidal Intention: No Homicidal Ideation: No Homicidal Plan: No Homicidal Intention: No Insight: Poor Judgment: Poor Results Vitals/IOs Vital Signs Date Time Temp Pulse Resp B/P (MAP) Pulse Ox O2 Delivery O2 Flow Rate FiO2 07/29/17 18:28 98.4 82 18 160/88 (112) 100 Assessment & Plan Problem List: (1) Chronic schizoaffective disorder with acute exacerbation ICD Codes: F25.8 - Other schizoaffective disorders Assessment & Plan Estimated LOS: Patient is just being started on a medication. With current treatment plan and monitor for decrease in symptoms. Days Justification for Cont. Inpt. Moving this patient to a less restrictive environment may result in decompensation. Lakisha Muhammad Jul 30, 2017 17:13
[2017-07-30] MEDS: LURASIDONE 40 MG TAB PO SCH (18:00)
[2017-07-30] MEDS: REMOVE OLD NICOTINE PATCH T-DERMAL SCH (20:46)
[2017-07-31 06:26] VITALS: BP 158/90; PULSE 77; RESP 19; TEMP 97.8; O2SAT 99
[2017-07-31] MEDS: NICOTINE 21 MG/24 HR PATCH T-DERMAL SCH (08:59)
--- NOTE | 2017-07-31 12:11 | HHI.PYPN ---
Subjective Remarks Reviewed electronic medical record discussed case with staff. Follow-up was conducted in the day room. Patient reports that she slept well and her appetite is been good. She is again requesting a change of medication from Latuda to Seroquel due to cost. Consulted with Dr. Palomo who advised to leave her on the Latuda for now. He will be following up with her tomorrow. Patient' s mood is irritable and her affect is blunt bordering on irritable. Mental Status Examination Appearance: Disheveled Consciousness: Alert Orientation: Person, Place Speech: Unremarkable Language: Adequate Fund of Knowledge: Inadequate Attention and Concentration: Adequate Memory: Unremarkable Mood: Irritable Affect: Irritable Thought Process & Associations: Other ([place], noted to be responding to internal stimuli) Thought Content: Hallucinations Hallucination Type: Auditory Delusion Type: None Suicidal Ideation: Yes Suicidal Plan: No Suicidal Intention: No Homicidal Ideation: No Homicidal Plan: No Homicidal Intention: No Insight: Poor Judgment: Poor Results Vitals/IOs Vital Signs Date Time Temp Pulse Resp B/P (MAP) Pulse Ox O2 Delivery O2 Flow Rate FiO2 07/31/17 06:26 97.8 77 19 158/90 (112) 99 Intake and Output 07/31/17 07/31/17 08/01/17 08:00 16:00 00:00 Intake Total 120 ml Balance 120 ml Assessment & Plan Problem List: (1) Chronic schizoaffective disorder with acute exacerbation ICD Codes: F25.8 - Other schizoaffective disorders Assessment & Plan Estimated LOS: Continue with current treatment. Patient will be reevaluated by her attending psychiatrist tomorrow. Days Justification for Cont. Inpt. Moving this patient to a less restrictive environment could result in decompensation. Lakisha Muhammad Jul 31, 2017 12:11
[2017-07-31] MEDS: LURASIDONE 40 MG TAB PO SCH (17:32)
[2017-07-31 18:16] VITALS: BP 182/98; PULSE 76; RESP 16; TEMP 98; O2SAT 99
[2017-07-31] MEDS: REMOVE OLD NICOTINE PATCH T-DERMAL SCH (20:55)
[2017-08-01 05:42] VITALS: BP 147/93; PULSE 67; RESP 18; TEMP 97.3; O2SAT 100
--- NOTE | 2017-08-01 07:00 | EKG ---
Date Performed: 07/29/2017 Time Performed: 11:12:54 PTAGE: 51 years EKG: Sinus rhythm NONSPECIFIC T-WAVE ABNORMALITY BORDERLINE ECG Since the PREVIOUS TRACING , no significant change noted PREVIOUS TRACIN01/05/2017 12.44 DOCTOR: Kwan Chester Interpretating Date/Time 08/01/2017 07:44:41
[2017-08-01] MEDS: NICOTINE 21 MG/24 HR PATCH T-DERMAL SCH (09:00)
--- NOTE | 2017-08-01 09:21 | PD.CONS ---
HPI Service [facility] Hospitalists Consult Requested By Psychiatric services Reason for Consult Assist with hypertensive management Primary Care Physician Unknown Diagnoses: History of Present Illness This is a 51-year-old female with a past medical history significant for hypertension, dyslipidemia and schizoaffective disorder who was transferred from [facility] to [facility] psychiatric unit under [place] act due to suicidal ideations with a plan to overdose on pills endorsing auditory and visual hallucinations. Hospitalist services have been consulted to assist with hypertensive management. Patient seen and examined. Patient appears irritable and is poorly communicative during the interview. She denies any complaints. When discussing her high blood pressure and starting medication patient states she does not want any blood pressure medications. She is minimally verbal and will give appropriate laura, short responses. Discussed with nursing staff, no acute issues noted. Patient denies any dizziness, headache, weakness, chest pain, shortness of breath, nausea, vomiting, abdominal pain, urinary difficulties, diarrhea or constipation. Review of medical records from [facility] shows patient's UA was negative. Urine drug screen was negative as well. Review of Systems Except as stated in HPI: all other systems reviewed are Neg Past Family Social History Allergies: Coded Allergies: olanzapine (Unverified Adverse Reaction, Unknown, Weight Gain, 06/23/17) risperidone (Unverified Adverse Reaction, Unknown, Shortness of Breath, ) ziprasidone (Unverified Adverse Reaction, Unknown, Chest Pain, 06/23/17) Past Medical History Schizoaffective disorder Anxiety/depression Hypertension HLD Past Surgical History Cholecystectomy Reported Medications No reported home medications Active Ordered Medications Current Medications Medications (Trade) Dose Ordered Sig/Abigail Route Start Time Stop Time Status Last Admin (Ativan) 1 mg Q6H PRN PO 07/29/17 06:00 07/30/17 08:37 (Ativan Inj) 1 mg Q6H PRN IM 07/29/17 06:00 (Benadryl) 50 mg HS PRN PO 07/29/17 06:00 (Benadryl Inj) 50 mg HS PRN IM 07/29/17 06:00 (Tylenol) 650 mg Q4H PRN PO 07/29/17 06:00 (Milk Of Magnesia Liq) 30 ml DAILY PRN PO 07/29/17 06:00 (Mag-Al Plus Susp Liq) 30 ml Q6H PRN PO 07/29/17 06:00 (Habitrol 21 Mg Patch.24 Hr) 1 patch DAILY T-DERMAL 07/29/17 09:00 07/31/17 08:59 Miscellaneous Information 1 HS T-DERMAL 07/29/17 21:00 07/31/17 20:55 (Latuda) 40 mg WITH DINNER PO 07/29/17 18:00 07/31/17 17:32 (Romazicon Inj) 0.2 mg Q1M PRN IV PUSH 07/29/17 16:30 (Ativan) 1 mg Q4H PRN PO 07/29/17 16:30 (Ativan Inj) 1 mg Q4H PRN IV PUSH 07/29/17 16:30 (Ativan) 2 mg Q2H PRN PO 07/29/17 16:30 (Ativan Inj) 2 mg Q2H PRN IV PUSH 07/29/17 16:30 (Ativan Inj) 2 mg Q1H PRN IV PUSH 07/29/17 16:30 (Ativan Inj) 2 mg Q15M PRN IV PUSH 07/29/17 16:30 (Norvasc) 5 mg DAILY PO 08/01/17 09:00 Family History Hypertension Social History Patient reports tobacco use but will not give specifics. She denies any alcohol use or illicit drug use. Physical Exam Vital Signs Vital Signs Date Time Temp Pulse Resp B/P (MAP) Pulse Ox O2 Delivery O2 Flow Rate FiO2 08/01/17 05:42 97.3 67 18 147/93 (111) 100 07/31/17 18:16 98.0 76 16 182/98 (126) 99 Physical Exam GENERAL: This is a well-nourished, well-developed middle-aged female patient, in no apparent distress. Awake and alert. Irritable. Somewhat dismissive with this interviewer. SKIN: No rashes, ecchymoses or lesions. Warm and dry. HEAD: Atraumatic. Normocephalic. No temporal or scalp tenderness. EYES: Pupils equal round and reactive. Extraocular motions intact. No scleral icterus. No injection or drainage. ENT: Nose without bleeding, purulent drainage or septal hematoma. Throat without erythema, tonsillar hypertrophy or exudate. Uvula midline. Airway patent. NECK: Trachea midline. No lymphadenopathy. Supple, nontender, no meningeal signs. CARDIOVASCULAR: Regular rate and rhythm without murmurs, gallops, or rubs. RESPIRATORY: Nonlabored. Clear to auscultation. Breath sounds equal bilaterally. No wheezes, rales, or rhonchi. GASTROINTESTINAL: Abdomen soft, non-tender, nondistended. No hepato-splenomegaly , or palpable masses. No guarding. MUSCULOSKELETAL: Extremities without clubbing, cyanosis, or edema. No joint tenderness, effusion, or edema noted. No calf tenderness. NEUROLOGICAL: Awake and alert. Cranial nerves II through XII grossly intact. Motor and sensory grossly within normal limits. Nonfocal peer normal speech. PSYCHIATRIC: Irritable mood. Poor insight and judgment. Assessment and Plan Assessment and Plan 51-year-old female with a past medical history significant for hypertension, dyslipidemia and schizoaffective disorder who was transferred from [facility] to [place] inpatient psychiatric unit under [place] act due to suicidal ideations with a plan to overdose on pills endorsing auditory and visual hallucinations. Hospitalist services have been consulted to assist with hypertensive management. Schizoaffective disorder with acute exacerbation Auditory and visual hallucinations Depression/anxiety Suicidal ideation with plan -Management per psychiatric services Hypertension -Start patient on Norvasc 5 mg daily patient states she will refuse medication. -Clonidine as needed with parameters -Continue to monitor BP trend Dyslipidemia -We will order fasting lipid profile DVT prophylaxis -Patient is ambulatory Discussed Condition With patient, nursing staff, Leah Riley Aug 01, 2017 09:21
[2017-08-01] MEDS ORDERED: cloNIDine HCL 0.1 MG TAB PO PRN (09:30)
[2017-08-01] MEDS: amLODIPine BESYLATE 5 MG TAB PO SCH (10:33)
[2017-08-01] MEDS ORDERED: PILL SPLITTER OTHER PRN (13:00)
--- NOTE | 2017-08-01 15:39 | PD.TTN ---
Patient Problems 1. Discharge planning 2. Medication compliance 3. Knowledge deficit 4. Lack of coping skills Progress Toward Goals Provider Present: Dr. Laci Palomo Provider Input: 08/01 offering a med adjustment today Nurse(s) Input: 08/01 Jade is suicidal reported to share she wants to overdose - angry and slamming doors, rude and intrusive, some ambivalent information Psychiatric Counselors Present: Aurea Levy LCSW Psych Therapist Input: 08/01 pt is appearing to request discharge and may lack insight to her situation later today patient shares she needs a psych eval for her probation, she insists she has [facility] apt but is not in system with them, she appears confused or ambivalent about her situation/history Aurea Levy LCSW Aug 01, 2017 15:39
--- NOTE | 2017-08-01 16:32 | HHI.PYPN ---
Subjective Remarks Patient seen for follow, chart reviewed. Discussion nursing staff reported the patient to be somewhat demanding and irritable less evening as well as with staff this morning. Patient was found heavily on the unit continues to be noted to be very sarcastic and irritable during interview but tolerating questioning much better today. Patient states that she had a bowel movement yesterday, reports sleeping well, and that her mood "could be better" reports that her energy is "fine" and asking about licensed clinical social worker in regards to social issues which she did not elaborate on. Patient states she spoke with her son which she did not elaborate on either. Patient states that she had been homeless prior to her admission staying at a "a dumpster" and noted to becoming upset and ended interview to go finish her lunch. Review of Systems Except as stated in HPI: all other systems reviewed are Neg Mental Status Examination Appearance: Disheveled Consciousness: Alert Orientation: Person, Place Speech: Unremarkable Language: Adequate Fund of Knowledge: Inadequate Attention and Concentration: Adequate Memory: Unremarkable Mood: Irritable Affect: Irritable Thought Process & Associations: Other ([place], noted to be responding to internal stimuli) Thought Content: Hallucinations Hallucination Type: Auditory Delusion Type: None Suicidal Ideation: Yes Suicidal Plan: No Suicidal Intention: No Homicidal Ideation: No Homicidal Plan: No Homicidal Intention: No Insight: Poor Judgment: Poor Results Vitals/IOs Vital Signs Date Time Temp Pulse Resp B/P (MAP) Pulse Ox O2 Delivery O2 Flow Rate FiO2 08/01/17 05:42 97.3 67 18 147/93 (111) 100 Assessment & Plan Problem List: (1) Chronic schizoaffective disorder with acute exacerbation ICD Codes: F25.8 - Other schizoaffective disorders Assessment & Plan Patient this time continues with irritability, noted to be internally preoccupied at times require redirection at times. We will continue to titrate antipsychotic, we will increase lurasidone to 60 mg p.o. daily. Continue rest of medications. Continue to monitor mood and behavior. Social work intervention for psychosocial assessment. Discharge planning a progress. Justification for Cont. Inpt. At risk for further decompensation if at lower level of care Robles Palomo MD Aug 01, 2017 16:32
[2017-08-01] MEDS: LURASIDONE 40 MG TAB PO SCH (17:16)
[2017-08-01] MEDS ORDERED: LORazepam 2 MG/ML VIAL IM STA (17:37)
[2017-08-01] MEDS ORDERED: HALOPERIDOL LACTATE 5 MG/ML AMP IM STA (17:37)
[2017-08-01] MEDS: REMOVE OLD NICOTINE PATCH T-DERMAL SCH (21:00)
[2017-08-02 06:14] VITALS: BP 138/88; PULSE 90; RESP 18; TEMP 98.2; O2SAT 100
[2017-08-02] MEDS: amLODIPine BESYLATE 5 MG TAB PO SCH (09:00)
[2017-08-02] MEDS: NICOTINE 21 MG/24 HR PATCH T-DERMAL SCH (09:00)
--- NOTE | 2017-08-02 11:56 | HHI.PR ---
Subjective Remarks Follow-up for hypertension. The patient is seen sitting upright in chair in the hallway. She refuses to answer some of my questions although does shake her head no when asked review of systems. Denies any lightheadedness, dizziness , headache, chest pain, cough, shortness of breath, abdominal pain, nausea/ vomiting, or urinary complaints. Discussed with RN, no acute concerns. Vital signs reviewed and currently stable. Objective Vitals Vital Signs Date Time Temp Pulse Resp B/P (MAP) Pulse Ox O2 Delivery O2 Flow Rate FiO2 08/02/17 06:14 98.2 90 18 138/88 (105) 100 Objective Remarks GENERAL: Well-nourished, well-developed middle-aged female patient in [facility]. SKIN: Warm and dry. No rash. HEENT: Normocephalic. Atraumatic. Pupils equal and round. Mucous membranes pink and moist. CARDIOVASCULAR: Regular rate and rhythm. No murmur appreciated. RESPIRATORY: No accessory muscle use. Clear to auscultation. Breath sounds equal bilaterally. GASTROINTESTINAL: Abdomen soft, non-tender, nondistended. Normoactive bowel sounds x4. MUSCULOSKELETAL: No obvious deformities. Extremities without clubbing, cyanosis , or edema. NEUROLOGICAL: Awake and alert. No obvious cranial nerve deficits. Motor grossly within normal limits. Moving all extremities spontaneously. Normal speech. Medications and IVs Current Medications Medications (Trade) Dose Ordered Sig/Abigail Route Start Time Stop Time Status Last Admin (Ativan) 1 mg Q6H PRN PO 07/29/17 06:00 07/30/17 08:37 (Ativan Inj) 1 mg Q6H PRN IM 07/29/17 06:00 (Benadryl) 50 mg HS PRN PO 07/29/17 06:00 (Benadryl Inj) 50 mg HS PRN IM 07/29/17 06:00 (Tylenol) 650 mg Q4H PRN PO 07/29/17 06:00 (Milk Of Magnesia Liq) 30 ml DAILY PRN PO 07/29/17 06:00 (Mag-Al Plus Susp Liq) 30 ml Q6H PRN PO 07/29/17 06:00 (Habitrol 21 Mg Patch.24 Hr) 1 patch DAILY T-DERMAL 07/29/17 09:00 07/31/17 08:59 Miscellaneous Information 1 HS T-DERMAL 07/29/17 21:00 07/31/17 20:55 (Romazicon Inj) 0.2 mg Q1M PRN IV PUSH 07/29/17 16:30 (Ativan) 1 mg Q4H PRN PO 07/29/17 16:30 (Ativan Inj) 1 mg Q4H PRN IV PUSH 07/29/17 16:30 (Ativan) 2 mg Q2H PRN PO 07/29/17 16:30 (Ativan Inj) 2 mg Q2H PRN IV PUSH 07/29/17 16:30 (Ativan Inj) 2 mg Q1H PRN IV PUSH 07/29/17 16:30 (Ativan Inj) 2 mg Q15M PRN IV PUSH 07/29/17 16:30 (Norvasc) 5 mg DAILY PO 08/01/17 09:00 08/01/17 10:33 (Catapres) 0.1 mg Q6H PRN PO 08/01/17 09:30 (Latuda) 60 mg WITH DINNER PO 08/01/17 18:00 08/01/17 17:16 (Pill Splitter) 1 ea UNSCH PRN OTHER 08/01/17 13:00 A/P Assessment and Plan 51-year-old female with a past medical history significant for hypertension, dyslipidemia and schizoaffective disorder who was transferred from [facility] to [place] inpatient psychiatric unit under [place] act due to suicidal ideations with a plan to overdose on pills endorsing auditory and visual hallucinations. Hospitalist services have been consulted to assist with hypertensive management. Schizoaffective disorder with acute exacerbation Auditory and visual hallucinations Depression/anxiety Suicidal ideation with plan -Continue management per psychiatric services Hypertension: BP up to 182/98 -Started patient on Norvasc 5 mg daily, however patient states she will refuse medication. -Clonidine as needed with parameters -Continue to monitor BP trend, improving Dyslipidemia -Ordered fasting lipid profile DVT prophylaxis -Patient is ambulatory Letty Hale PA-C Aug 02, 2017 11:56 am
--- NOTE | 2017-08-02 15:59 | HHI.PYPN ---
Subjective Remarks Patient seen for follow-up, chart reviewed. Discussion nursing staff reported the patient had receive ETO last evening after becoming upset as well as seeing throwing food tray during lunchtime today on the floor. Patient was lying hospital bed noted B, cooperative. Patient states that yesterday she had felt frustrated about everything has been going on with her life had decided to express it verbally but states that she was not wanting to be aggressive toward anyone specific. Patient also states that earlier today she had dropped her tray and did not throw it floor on purpose. She states her mood has been "okay " reports sleeping well, eating and drinking well denying any perceptual disturbances at this time. Patient noted to have more appropriate interactions and appropriate responses to questions today. 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 Review of Systems Except as stated in HPI: all other systems reviewed are Neg Mental Status Examination Appearance: Disheveled Consciousness: Alert Orientation: Person, Place Speech: Unremarkable Language: Adequate Fund of Knowledge: Inadequate Attention and Concentration: Adequate Memory: Unremarkable Mood: Appropriate Affect: Appropriate Thought Process & Associations: Linear, Other ([place]) Thought Content: Appropriate Hallucination Type: None Delusion Type: None Suicidal Ideation: No Suicidal Plan: No Suicidal Intention: No Homicidal Ideation: No Homicidal Plan: No Homicidal Intention: No Insight: Fair Judgment: Impulsive Results Vitals/IOs Vital Signs Date Time Temp Pulse Resp B/P (MAP) Pulse Ox O2 Delivery O2 Flow Rate FiO2 08/02/17 06:14 98.2 90 18 138/88 (105) 100 Assessment & Plan Problem List: (1) Chronic schizoaffective disorder with acute exacerbation ICD Codes: F25.8 - Other schizoaffective disorders Assessment & Plan Patient with recent portables control and required ETO last evening as well as questionable incident of her food tray being thrown the floor but patient noted to be calm and cooperative during interview. We will continue to monitor mood and behavior. Patient appears to be responding to current treatment patient maintains adequate behavioral control and continues with adherence likely for discharge soon. We will continue current treatment. Continue to monitor mood and behavior. Discharge planning in progress. Justification for Cont. Inpt. At risk of further decompensation a lower level of care. Robles Palomo MD Aug 02, 2017 15:59
[2017-08-02 18:11] VITALS: BP 133/72; PULSE 71; RESP 18; TEMP 98.2; O2SAT 98
[2017-08-02] MEDS: LURASIDONE 40 MG TAB PO SCH (18:30)
[2017-08-02] MEDS: REMOVE OLD NICOTINE PATCH T-DERMAL SCH (20:49)
[2017-08-03 06:14] VITALS: BP 137/91; PULSE 84; RESP 17; TEMP 97.9; O2SAT 99
[2017-08-03] MEDS: amLODIPine BESYLATE 5 MG TAB PO SCH (09:31)
[2017-08-03] MEDS: NICOTINE 21 MG/24 HR PATCH T-DERMAL SCH (09:33)
[2017-08-03 10:29] LABS: AUTOMATED NEUTROPHIL # 4.3 TH/MM3 (1.8-7.7); BASOPHIL # 0.1 TH/MM3 (0-0.2); BASOPHIL % 1.3 % (0.0-2.0); EOSINOPHIL # 0.3 TH/MM3 (0-0.4); EOSINOPHIL % 3.6 % (0.0-4.0); HEMOGLOBIN 14.6 GM/DL (11.6-15.3); LYMPH % 28.6 % (9.0-44.0); LYMPHOCYTE # 2.2 TH/MM3 (1.0-4.8); MEAN CELL VOLUME 81.1 FL (80.0-100.0); MEAN CORPUSCULAR HEMOGLOBIN 26.9 PG (27.0-34.0); MEAN CORPUSCULAR HGB CONC 33.2 % (32.0-36.0); MEAN PLATELET VOLUME 9.7 FL (7.0-11.0); MONO % 11.4 % (0.0-8.0); MONOCYTE # 0.9 TH/MM3 (0-0.9); NEUT % 55.1 % (16.0-70.0); PLATELET COUNT 269 TH/MM3 (150-450); RED BLOOD COUNT 5.43 MIL/MM3 (4.00-5.30); RED CELL DISTRIBUTION WIDTH 14.4 % (11.6-17.2); WHITE BLOOD COUNT 7.8 TH/MM3 (4.0-11.0)
[2017-08-03] MEDS ORDERED: LURA1TAB2 PO (10:29)
[2017-08-03] MEDS ORDERED: AMLO5 PO (10:29)
[2017-08-03 11:00] LABS: ALBUMIN 3.7 GM/DL (3.4-5.0); AST (GOT) 10 U/L (15-37); BLOOD UREA NITROGEN 13 MG/DL (7-18); CALCIUM 9.2 MG/DL (8.5-10.1); GLOMERULAR FILTRATION RATE 76 ML/MIN (>89); GLUCOSE,RANDOM 73 MG/DL (74-106); SODIUM (NA) 141 MEQ/L (136-145)
[2017-08-03 11:01] LABS: BICARBONATE 26.4 MEQ/L (21.0-32.0); CHLORIDE 106 MEQ/L (98-107); CHOLESTEROL 211 MG/DL (120-200); TRIGLYCERIDES 231 MG/DL (42-150)
[2017-08-03 11:04] LABS: ALKALINE PHOSPHATASE 63 U/L (45-117); ALT (GPT) 13 U/L (10-53); CHOLESTEROL/ HDL RATIO 5.49 RATIO; HDL CHOLESTEROL 38.4 MG/DL (40.0-60.0); LDL CHOLESTEROL 126 MG/DL (0-99); TOTAL BILIRUBIN ADULT 0.5 MG/DL (0.2-1.0); TOTAL PROTEIN 7.2 GM/DL (6.4-8.2)
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
== END 2017-08-03 12:30 | disposition home or self-care (01) | DRG 885 ==
LOC: H270 05:35 → H260 07-31 08:00
PROVIDERS: ADMIT Student in an Organized Health Care Education/Training Program; ATTEND Student in an Organized Health Care Education/Training Program
DX: F25.8 Other schizoaffective disorders (principal); R45.851 Suicidal ideations; Z59.0 Homelessness; E78.5 Hyperlipidemia, unspecified; I10 Essential (primary) hypertension; F32.9 Major depressive disorder, single episode, unspecified; F41.9 Anxiety disorder, unspecified
CPT/HCPCS: 80053; 80061; 85025; 93005; J1630; J2060